=== PATIENT | male | born 1980 | race Hispanic/Latino ===

== ENCOUNTER 2018-01-20 22:34 | Emergency (ER) | payer OTHER ==
[2018-01-20] MEDS ORDERED: SODIUM CHLORIDE 0.9% 1000ML 1,000 ML IV ONE (23:07)
[2018-01-20] MEDS ORDERED: MORPHINE SULFATE 4 MG/1ML SYG ONE (23:07)
[2018-01-20] MEDS ORDERED: ONDANSETRON HCL 4 MG/2 ML VIAL ONE (23:07)
[2018-01-20 23:21] LABS: BASOPHILS % (AUTO) 0.6 % (0.0-5.0); HEMATOCRIT 46.9 % (42-54); MEAN CORPUSCULAR HEMOGLOBIN 30.5 pg (27.0-33.0); MEAN CORPUSCULAR HGB CONC 34.3 g/dL (32.0-36.0); MEAN CORPUSCULAR VOLUME 88.7 fL (79-99); MONOCYTES % (AUTO) 6.3 % (3.0-13.0); NEUTROPHILS % (AUTO) 66.1 % (40.0-77.0); NUCLEATED RED BLOOD CELLS 0.1 % (0.0-0.19); PLATELET COUNT (AUTO) 291 K/uL (130-400); RED BLOOD CELL COUNT(AUTO) 5.29 MIL/uL (4.50-6.20); RED CELL DISTRIBUTION WIDTH 12.9 % (11.0-15.5); WHITE BLOOD COUNT (AUTO) 9.7 K/uL (4.8-10.8)
[2018-01-20 23:24] LABS: CREATININE 1.1 mg/dL (0.5-1.5); POTASSIUM 3.4 mmol/L (3.5-5.1)
[2018-01-20 23:28] LABS: ALBUMIN 3.5 g/dL (3.5-5.0); BILIRUBIN,TOTAL 1.2 mg/dL (0.2-1.0); TOTAL PROTEIN, SERUM 6.7 g/dL (6.0-8.3)
[2018-01-20] MEDS ORDERED: FAMOTIDINE/PF 20 MG/2 ML VIAL IV ONE (23:44)
[2018-01-20] MEDS ORDERED: LIDOCAINE HCL 2% VISCOUS 15 ML UDCUP ONE (23:45)
[2018-01-20] MEDS ORDERED: MAGNESIUM HYDROXIDE 30 ML/UDCUP ONE (23:45)
== END 2018-01-21 01:02 | disposition home or self-care (01) ==
LOC: EDH 22:34
DX: K29.70 Gastritis, unspecified, without bleeding (principal); F43.10 Post-traumatic stress disorder, unspecified; F41.9 Anxiety disorder, unspecified
CPT/HCPCS: 36415; 76705; 80053; 83690; 84484; 85025; 93005; 96361; 96374; 96375; 99285; J2270; J2405; J3490; J7030

== ENCOUNTER 2019-01-24 22:49 | Emergency (ER) | payer OTHER ==
[2019-01-24 23:17] LABS: APPEARANCE,URINE Clear (CLEAR); BILIRUBIN,URINE Negative (NEGATIVE); COLOR,URINE Yellow (YELLOW); GLUCOSE, URINE (UA) Negative (NEGATIVE); KETONES,URINE Negative (NEGATIVE); LEUKOCYTE ESTERASE ,URINE Negative (NEGATIVE); NITRATE,URINE Negative (NEGATIVE); OCCULT BLOOD,URINE Negative (NEGATIVE); PROTEIN,URINE Negative (NEGATIVE)
[2019-01-24 23:58] LABS: BASOPHILS % (AUTO) 0.6 % (0.0-5.0); EOSINOPHILS % (AUTO) 2.9 % (0.0-8.0); HEMATOCRIT 46.3 % (42-54); LYMPHOCYTES % (AUTO) 33.4 % (21.0-51.0); MEAN CORPUSCULAR HEMOGLOBIN 30.9 pg (27.0-33.0); MEAN CORPUSCULAR HGB CONC 34.5 g/dL (32.0-36.0); MEAN CORPUSCULAR VOLUME 89.3 fL (79-99); MONOCYTES % (AUTO) 7.8 % (3.0-13.0); NEUTROPHILS % (AUTO) 55.3 % (40.0-77.0); PLATELET COUNT (AUTO) 298 K/uL (130-400); RED BLOOD CELL COUNT(AUTO) 5.18 MIL/uL (4.50-6.20); RED CELL DISTRIBUTION WIDTH 13.1 % (11.0-15.5); WHITE BLOOD COUNT (AUTO) 8.7 K/uL (4.8-10.8)
[2019-01-25 00:06] LABS: CREATININE 0.8 mg/dL (0.5-1.5); POTASSIUM 3.9 mmol/L (3.5-5.1)
== END 2019-01-25 00:36 | disposition home or self-care (01) ==
LOC: EDH 22:49
DX: R10.32 Left lower quadrant pain (principal)
CPT/HCPCS: 36415; 74176; 80048; 81003; 85025

== ENCOUNTER → 2020-08-14 | Emergency (ER) | payer OTHER ==
[~2020-08-14] VITALS: Ht 160 cm; Wt 99.8 kg
[~2020-08-14] MED LIST: ASPIRIN 325 MG TABLET PO SCH; ESOM40CA54 PO; HYDR-3421 PO
[2020-08-14 17:39] VITALS: BP 133/73
[2020-08-14 17:51] LABS: BASOPHILS % (AUTO) 0.5 % (0.0-5.0); EOSINOPHILS % (AUTO) 2.3 % (0.0-8.0); HEMATOCRIT 42.5 % (42-54); MEAN CORPUSCULAR HEMOGLOBIN 30.8 pg (27.0-33.0); MEAN CORPUSCULAR HGB CONC 34.6 g/dL (32.0-36.0); MEAN CORPUSCULAR VOLUME 88.9 fL (79-99); MONOCYTES % (AUTO) 8.8 % (3.0-13.0); PLATELET COUNT (AUTO) 253 K/uL (130-400); RED BLOOD CELL COUNT(AUTO) 4.78 MIL/uL (4.50-6.20); RED CELL DISTRIBUTION WIDTH 12.2 % (11.0-15.5); WHITE BLOOD COUNT (AUTO) 9.3 K/uL (4.8-10.8)
[2020-08-14 18:01] LABS: CARBON DIOXIDE 29 mmol/L (21-32); CHLORIDE 104 mmol/L (101-111); CREATININE 0.9 mg/dL (0.5-1.5); GLOMERULAR FILTR. RATE CALC 100 mL/min (>60); GLUCOSE,RANDOM 111 mg/dL (70-105); POTASSIUM 3.7 mmol/L (3.5-5.1); SODIUM SERUM 144 mmol/L (136-145); UREA NITROGEN, BLOOD 12 mg/dL (7-18)
[2020-08-14 18:20] LABS: ALANINE AMINOTRANSFERASE 33 U/L (12-78); ALBUMIN 3.8 g/dL (3.5-5.0); BILIRUBIN,TOTAL 0.8 mg/dL (0.2-1.0); CREATINE KINASE, TOTAL 84 U/L (21-232); MYOGLOBIN 31 ng/mL (10-92); TOTAL PROTEIN, SERUM 7.9 g/dL (6.0-8.3); TROPONIN I < 0.04 ng/mL (0.00-0.06)
[2020-08-14 18:39] LABS: ASPARTATE AMINOTRANSFERASE 11 U/L (10-37)
== END | disposition home or self-care (01) ==
LOC: EDH 17:19
DX: F41.9 Anxiety disorder, unspecified (principal); R07.89 Other chest pain
CPT/HCPCS: 36415; 71045; 80053; 82550; 83874; 84484; 85025; 93005

== ENCOUNTER 2020-12-21 01:49 | Emergency (ER) | payer OTHER ==
[~2020-12-21] VITALS: Ht 160 cm; Wt 93.0 kg
[~2020-12-21 01:49] MED LIST changes: -ASPIRIN 325 MG TABLET PO SCH
[2020-12-21] MEDS ORDERED: LIDOCAINE HCL 2% JELLY 5 ML TP ONE (02:30)
[2020-12-21] MEDS ORDERED: HYDR25SU38 RC (02:37)
[2020-12-21] MEDS ORDERED: HYDR30CR79 RC (02:37)
[2020-12-21] MEDS ORDERED: KETOROLAC 60 MG VIAL (30MG/ML) ONE (02:48)
[2020-12-21] MEDS ORDERED: PREDNISONE 20 MG TABLET ONE (02:48)
[2020-12-21] MEDS ORDERED: LIDOCAINE HCL 2% JELLY 5 ML ONE (02:48)
[2020-12-21 02:50] VITALS: BP 117/65
[2020-12-21] MEDS ORDERED: KETOROLAC 60 MG VIAL (30MG/ML) IM ONE (03:00)
[2020-12-21] MEDS ORDERED: PREDNISONE 20 MG TABLET PO ONE (03:00)
== END 2020-12-21 03:18 | disposition home or self-care (01) ==
LOC: EDH 01:49
DX: K64.9 Unspecified hemorrhoids (principal); F41.9 Anxiety disorder, unspecified; Z79.1 Long term (current) use of non-steroidal anti-inflammatories (NSAID); Z79.52 Long term (current) use of systemic steroids
CPT/HCPCS: 96372; 99283; J1885

== ENCOUNTER 2021-12-09 15:33 | Emergency (ER) | payer OTHER ==
[~2021-12-09] VITALS: Ht 162.6 cm; Wt 99.8 kg
[~2021-12-09 15:33] MED LIST changes: +HYDR25SU38 RC; +HYDR30CR79 RC
[2021-12-09] MEDS ORDERED: LIDOCAINE HCL 2% VISCOUS 15 ML UDCUP ONE (15:43)
[2021-12-09] MEDS ORDERED: DICYCLOMINE HCL 10 MG/5 ML ML PO ONE ×2 (15:44→16:00)
[2021-12-09] MEDS ORDERED: MAG/ALUM/SIMETH 30 ML UDCUP ONE (15:44)
[2021-12-09] MEDS ORDERED: PANTOPRAZOLE 40 MG/VIAL IVP STA (15:56)
[2021-12-09] MEDS ORDERED: LIDOCAINE HCL 2% VISCOUS 15 ML UDCUP PO ONE (16:00)
[2021-12-09] MEDS ORDERED: MAG/ALUM/SIMETH 30 ML UDCUP PO ONE (16:00)
[2021-12-09 16:25] LABS: BASOPHILS % (AUTO) 0.3 % (0.0-5.0); EOSINOPHILS % (AUTO) 6.7 % (0.0-8.0); HEMATOCRIT 43.3 % (42-54); LYMPHOCYTES % (AUTO) 18.9 % (21.0-51.0); MEAN CORPUSCULAR HEMOGLOBIN 30.4 pg (27.0-33.0); MEAN CORPUSCULAR HGB CONC 35.1 g/dL (32.0-36.0); MEAN CORPUSCULAR VOLUME 86.6 fL (79-99); MONOCYTES % (AUTO) 6.2 % (3.0-13.0); PLATELET COUNT (AUTO) 345 K/uL (130-400); RED CELL DISTRIBUTION WIDTH 12.4 % (11.0-15.5); WHITE BLOOD COUNT (AUTO) 13.6 K/uL (4.8-10.8)
[2021-12-09 16:33] LABS: POTASSIUM 3.6 mmol/L (3.5-5.1)
[2021-12-09 16:37] LABS: ALBUMIN 4.5 g/dL (3.5-5.0); TOTAL PROTEIN, SERUM 8.9 g/dL (6.0-8.3)
[2021-12-09] MEDS ORDERED: PANT40TA55 PO (17:19)
[2021-12-09 17:20] VITALS: BP 146/71
== END 2021-12-09 17:32 | disposition home or self-care (01) ==
LOC: EDH 15:33
DX: K29.70 Gastritis, unspecified, without bleeding (principal); K52.9 Noninfective gastroenteritis and colitis, unspecified; Z98.890 Other specified postprocedural states; Z79.899 Other long term (current) drug therapy
CPT/HCPCS: 99284; 96374; 84484; 80053; 83690; 85025; 36415; 93005; C9113

== ENCOUNTER 2022-01-13 10:30 | Emergency (ER) | payer OTHER ==
[~2022-01-13] VITALS: Ht 162.6 cm; Wt 99.8 kg
[~2022-01-13 10:30] MED LIST changes: +PANT40TA55 PO
[2022-01-13 10:34] VITALS: BP 121/66
[2022-01-13] MEDS ORDERED: NAPR500T6 PO (12:15)
[2022-01-13] MEDS ORDERED: KETOROLAC 60 MG VIAL (30MG/ML) IM ONE (12:30)
[2022-01-13 12:47] LABS: APPEARANCE,URINE CLEAR (CLEAR); BILIRUBIN,URINE NEGATIVE (NEGATIVE); COLOR,URINE LIGHT-YELLOW (YELLOW); GLUCOSE, URINE (UA) NEGATIVE (NEGATIVE); KETONES,URINE NEGATIVE (NEGATIVE); LEUKOCYTE ESTERASE ,URINE NEGATIVE Leu/uL (NEGATIVE); NITRATE,URINE NEGATIVE (NEGATIVE); OCCULT BLOOD,URINE NEGATIVE (NEGATIVE); PROTEIN,URINE NEGATIVE (NEGATIVE); UROBILINOGEN,URINE 0.2 mg/dL (0.2-1.0)
== END 2022-01-13 12:36 | disposition home or self-care (01) ==
LOC: EDH 10:30
DX: L92.8 Other granulomatous disorders of the skin and subcutaneous tissue (principal); Z79.899 Other long term (current) drug therapy; Z98.890 Other specified postprocedural states
CPT/HCPCS: 99284; 81003; 76870; 96372; J1885

== ENCOUNTER 2022-11-19 17:03 | Emergency (ER) | payer OTHER ==
[~2022-11-19] VITALS: Ht 162.6 cm; Wt 145.1 kg
[~2022-11-19 17:03] MED LIST changes: +NAPR500T6 PO
[2022-11-19 17:54] LABS: BASOPHILS # (AUTO) 0.03 K/uL (0.00-0.20); BASOPHILS % (AUTO) 0.2 % (0.0-5.0); HEMATOCRIT 42.9 % (42-54); IMMATURE GRANULOCYTE ABSOLUTE 0.11 K/uL (0-1); LYMPHOCYTES # (AUTO) 2.8 K/uL (1.0-4.8); LYMPHOCYTES % (AUTO) 16.3 % (21.0-51.0); MEAN CORPUSCULAR HEMOGLOBIN 30.5 pg (27.0-33.0); MEAN CORPUSCULAR HGB CONC 34.5 g/dL (32.0-36.0); MEAN CORPUSCULAR VOLUME 88.5 fL (79-99); MONOCYTES % (AUTO) 5.9 % (3.0-13.0); NEUTROPHILS # (AUTO) 13.4 K/uL (1.8-7.7); PLATELET COUNT (AUTO) 315 K/uL (130-400); RED BLOOD CELL COUNT(AUTO) 4.85 MIL/uL (4.50-6.20); RED CELL DISTRIBUTION WIDTH 12.4 % (11.0-15.5); WHITE BLOOD COUNT (AUTO) 17.4 K/uL (4.8-10.8)
[2022-11-19] MEDS ORDERED: PANTOPRAZOLE 40 MG/VIAL IVP ONE (18:00)
[2022-11-19] MEDS ORDERED: MAG/ALUM/SIMETH 30 ML UDCUP PO ONE (18:00)
[2022-11-19] MEDS ORDERED: LACTATED RINGERS 1000ML 1,000 ML IV ONE (18:00)
[2022-11-19] MEDS ORDERED: ONDANSETRON 4MG INJ IVP ONE (18:00)
[2022-11-19] MEDS ORDERED: LIDOCAINE HCL 2% VISCOUS 15 ML UDCUP PO ONE (18:00)
[2022-11-19 18:21] LABS: POTASSIUM 3.6 mmol/L (3.5-5.1)
[2022-11-19 18:36] LABS: ALBUMIN 4.5 g/dL (3.5-5.0); BILIRUBIN,TOTAL 0.9 mg/dL (0.2-1.0); TOTAL PROTEIN, SERUM 8.6 g/dL (6.0-8.3)
[2022-11-19] MEDS ORDERED: IOHEXOL-350 75 ML VIAL IV ONE (19:12)
[2022-11-19 20:48] LABS: AMPHET/METH SCREEN,URINE NEGATIVE (NEGATIVE); BARBITURATE SCREEN, URINE NEGATIVE (NEGATIVE); BENZODIAZEPINES SCREEN,URINE NEGATIVE (NEGATIVE); CANNABINOID SCREEN,URINE NEGATIVE (NEGATIVE); COCAINE SCREEN,URINE NEGATIVE (NEGATIVE); OPIATE SCREEN,URINE NEGATIVE (NEGATIVE); PHENCYCLIDINE SCREEN,URINE NEGATIVE (NEGATIVE)
[2022-11-19 21:01] LABS: APPEARANCE,URINE CLEAR (CLEAR); BILIRUBIN,URINE NEGATIVE (NEGATIVE); COLOR,URINE LIGHT-YELLOW (YELLOW); GLUCOSE, URINE (UA) NEGATIVE (NEGATIVE); KETONES,URINE NEGATIVE (NEGATIVE); LEUKOCYTE ESTERASE ,URINE NEGATIVE Leu/uL (NEGATIVE); NITRATE,URINE NEGATIVE (NEGATIVE); OCCULT BLOOD,URINE NEGATIVE (NEGATIVE); PH,URINE 6.5 (5.0-8.0); PROTEIN,URINE NEGATIVE (NEGATIVE); UROBILINOGEN,URINE 0.2 mg/dL (0.2-1.0)
[2022-11-19 21:03] LABS: ADD UA MICROSCOPIC YES
[2022-11-19 21:10] LABS: BACTERIA,URINE Rare /HPF (None Seen); RBC,URINE 0-1 /HPF (0-1); WBC,URINE 0-1 /HPF (0-1)
[2022-11-19 21:11] LABS: SQUAMOUS EPITHELIAL CELL,UR Rare /HPF (0-2)
[2022-11-19] MEDS ORDERED: ALBUHFA IH (22:08)
[2022-11-19 22:21] VITALS: BP 148/72; PULSE 56; RESP 16; O2SAT 98
== END 2022-11-19 22:21 | disposition home or self-care (01) ==
LOC: EDH 17:03
DX: K29.70 Gastritis, unspecified, without bleeding (principal); J20.8 Acute bronchitis due to other specified organisms; Z98.890 Other specified postprocedural states
CPT/HCPCS: 99285; 74177; 96374; 96361; 96375; 82550; 84484; 80053; 80305; 83690; 85025; 81001; 36415; J7120; J2405; C9113; Q9967

== ENCOUNTER 2023-02-25 08:12 | Emergency (ER) | payer OTHER ==
[~2023-02-25] VITALS: Ht 162.6 cm; Wt 99.8 kg
[~2023-02-25 08:12] MED LIST changes: +ALBUHFA IH
[2023-02-25 08:48] LABS: HEMATOCRIT 42.1 % (42-54); MEAN CORPUSCULAR HEMOGLOBIN 31.2 pg (27.0-33.0); MEAN CORPUSCULAR HGB CONC 34.2 g/dL (32.0-36.0); MEAN CORPUSCULAR VOLUME 91.1 fL (79-99); RED BLOOD CELL COUNT(AUTO) 4.62 MIL/uL (4.50-6.20); RED CELL DISTRIBUTION WIDTH 12.4 % (11.0-15.5); WHITE BLOOD COUNT (AUTO) 7.5 K/uL (4.8-10.8)
[2023-02-25 09:00] LABS: APPEARANCE,URINE CLEAR (CLEAR); BILIRUBIN,URINE NEGATIVE (NEGATIVE); COLOR,URINE LIGHT-YELLOW (YELLOW); GLUCOSE, URINE (UA) NEGATIVE (NEGATIVE); KETONES,URINE NEGATIVE (NEGATIVE); LEUKOCYTE ESTERASE ,URINE NEGATIVE Leu/uL (NEGATIVE); NITRATE,URINE NEGATIVE (NEGATIVE); OCCULT BLOOD,URINE NEGATIVE (NEGATIVE); PH,URINE 5.5 (5.0-8.0); PROTEIN,URINE NEGATIVE (NEGATIVE); UROBILINOGEN,URINE 0.2 mg/dL (0.2-1.0)
[2023-02-25 09:14] LABS: ADD UA MICROSCOPIC NO
[2023-02-25 09:18] LABS: ALBUMIN 3.7 g/dL (3.5-5.0); BILIRUBIN,TOTAL 0.6 mg/dL (0.2-1.0); CREATININE 0.9 mg/dL (0.5-1.5); POTASSIUM 4.2 mmol/L (3.5-5.1); TOTAL PROTEIN, SERUM 7.2 g/dL (6.0-8.3)
[2023-02-25] MEDS ORDERED: MECLIZINE HCL 25 MG TABLET PO ONE (10:00)
[2023-02-25] MEDS ORDERED: DEXAMETHASONE SOD PHOSPHATE 4 MG/ML 1ML VIAL IM ONE (10:00)
[2023-02-25] MEDS ORDERED: MECL-302 PO (10:56)
[2023-02-25 11:13] VITALS: BP 115/68; PULSE 65; RESP 17; O2SAT 96
== END 2023-02-25 11:16 | disposition home or self-care (01) ==
LOC: EDH 08:12
DX: H81.10 Benign paroxysmal vertigo, unspecified ear (principal); Z79.899 Other long term (current) drug therapy
CPT/HCPCS: 99284; 80053; 85027; 81003; 36415; 96372; 93005; J1100

== ENCOUNTER 2023-06-16 09:27 | Emergency (ER) | payer OTHER ==
[~2023-06-16] VITALS: Ht 162.6 cm; Wt 99.8 kg
[~2023-06-16 09:27] MED LIST changes: +MECL-160 PO
[2023-06-16 09:28] VITALS: BP 157/78; PULSE 45; RESP 18
[2023-06-16] MEDS: LIDOCAINE HCL 2% VISCOUS 15 ML UDCUP PO ONE (10:21)
[2023-06-16] MEDS: MAG/ALUM/SIMETH 30 ML UDCUP PO ONE (10:21)
[2023-06-16 10:29] LABS: BASOPHILS # (AUTO) 0.04 K/uL (0.00-0.20); BASOPHILS % (AUTO) 0.3 % (0.0-5.0); EOSINOPHILS # (AUTO) 0.04 K/uL (0.00-0.70); EOSINOPHILS % (AUTO) 0.3 % (0.0-8.0); HEMATOCRIT 41.9 % (42-54); LYMPHOCYTES # (AUTO) 2.6 K/uL (1.0-4.8); LYMPHOCYTES % (AUTO) 19.9 % (21.0-51.0); MEAN CORPUSCULAR HEMOGLOBIN 31.2 pg (27.0-33.0); MEAN CORPUSCULAR HGB CONC 35.3 g/dL (32.0-36.0); MEAN CORPUSCULAR VOLUME 88.2 fL (79-99); MONOCYTES % (AUTO) 7.6 % (3.0-13.0); NEUTROPHILS # (AUTO) 9.3 K/uL (1.8-7.7); NEUTROPHILS % (AUTO) 71.1 % (40.0-77.0); PLATELET COUNT (AUTO) 298 K/uL (130-400); RED BLOOD CELL COUNT(AUTO) 4.75 MIL/uL (4.50-6.20); RED CELL DISTRIBUTION WIDTH 11.9 % (11.0-15.5); WHITE BLOOD COUNT (AUTO) 13.1 K/uL (4.8-10.8)
[2023-06-16 11:00] LABS: ALBUMIN 4.2 g/dL (3.5-5.0); BILIRUBIN,TOTAL 0.5 mg/dL (0.2-1.0); CREATININE 0.9 mg/dL (0.5-1.3); POTASSIUM 3.8 mmol/L (3.5-5.1); TOTAL PROTEIN, SERUM 8.2 g/dL (6.0-8.3)
[2023-06-16 11:07] LABS: APPEARANCE,URINE CLEAR (CLEAR); BILIRUBIN,URINE NEGATIVE (NEGATIVE); COLOR,URINE YELLOW (YELLOW); GLUCOSE, URINE (UA) NEGATIVE (NEGATIVE); KETONES,URINE NEGATIVE (NEGATIVE); LEUKOCYTE ESTERASE ,URINE NEGATIVE Leu/uL (NEGATIVE); NITRATE,URINE NEGATIVE (NEGATIVE); OCCULT BLOOD,URINE NEGATIVE (NEGATIVE); PH,URINE 5.5 (5.0-8.0); PROTEIN,URINE 30 mg/dL (NEGATIVE); UROBILINOGEN,URINE 0.2 mg/dL (0.2-1.0)
[2023-06-16 11:10] LABS: ADD UA MICROSCOPIC YES
[2023-06-16 11:16] LABS: BACTERIA,URINE RARE /HPF (None Seen); MUCUS,URINE RARE LPF (None Seen); RBC,URINE 0-1 /HPF (0-1); WBC,URINE 0-1 /HPF (0-1)
[2023-06-16] MEDS ORDERED: FAMO20TA8 PO (11:18)
[2023-06-16] MEDS ORDERED: ONDA4TAB10 PO (11:18)
== END 2023-06-16 11:23 | disposition home or self-care (01) ==
LOC: EDH 09:27
DX: K80.20 Calculus of gallbladder without cholecystitis without obstruction (principal); K29.70 Gastritis, unspecified, without bleeding; Z79.899 Other long term (current) drug therapy
CPT/HCPCS: 36415; 71045; 76705; 80053; 81001; 83690; 85025; 93005

== ENCOUNTER 2024-12-08 16:34 | Emergency (ER) | payer OTHER ==
[~2024-12-08] VITALS: Ht 162.6 cm; Wt 99.8 kg
[~2024-12-08 16:34] MED LIST changes: -ESOM40CA54 PO; +ESOM40CA66 PO; +FAMO20TA8 PO; -MECL-160 PO; +MECL-302 PO; +NAPR-1506 PO; -NAPR500T6 PO; +ONDA-243 PO
[2024-12-08 16:38] VITALS: BP 125/57; PULSE 82; RESP 18; TEMP 98.7
--- NOTE | 2024-12-08 16:51 | ERN ---
ED Note History of Present Illness Stated Complaint: TESTICLE PAIN Chief Complaint: Other Problems Time Seen by MD: 16:39 Dictation: PATIENT IS A 44-YEAR-OLD MALE COMING IN TODAY WITH COMPLAINTS OF AN ACUTE ONSET OF LEFT TESTICULAR PAIN WHILE HE WAS WALKING APPROXIMATELY 15:30 HOURS TODAY. HE STATES HE HAS HAD NO NAUSEA VOMITING NO FEVER NO CHILLS. THERE HAS BEEN NO TRAUMA. STATES THERE HAS BEEN NO CHANGE IN URINATION. Allergies: Coded Allergies: No Known Allergies (Unverified Allergy, Unknown, 01/25/19) Home Meds Active Scripts Famotidine (Famotidine) 20 Mg Tablet, 20 MG PO BID, #30 TAB Prov:MIROSLAVA MAKI V GRAPHIC ART DESIGNER 06/16/23 Ondansetron (Ondansetron Odt) 4 Mg Tab.rapdis, 4 MG PO Q6HPRN PRN for NAUSEA for 3 Days, #9 TAB Prov:MIROSLAVA MAKI V GRAPHIC ART DESIGNER 06/16/23 Meclizine HCl (Meclizine HCl) 25 Mg Tablet, 25 MG PO TID PRN for DIZZINESS, #30 TAB 0 Refills Prov:VETO MUKHERJEE MD 02/25/23 Albuterol Sulfate (Ventolin Hfa/Proventil Hfa/Proair Hfa) 90 Mcg/Puff Puff, 2 PUFF IH Q4H for WHEEZING, #1 INHALER 2 Refills Prov:ANDREY ALEMAN Sr., MD 11/19/22 Naproxen (Naproxen) 500 Mg Tablet.dr, 500 MG PO BIDPC for PAIN for 30 Days, #30 TAB Prov:JOSE DE LA VEGA MD 01/13/22 Pantoprazole Sodium (Protonix) 40 Mg Ectab, 40 MG PO DAILY for 30 Days, #30 TA B.EC Prov:MANDY BARAJAS MD 12/09/21 Hydrocortisone (Anusol-Hc) 30 Gm Cream..g., 30 GM RC TIDP, #30 GM 0 Refills Prov:GEORGIE DALE MD 12/21/20 Hydrocortisone Acetate (Anusol-Hc) 25 Mg Supp.rect, 25 MG RC BID, #20 EA 0 Refills Prov:GEORGIE DALE MD 12/21/20 Esomeprazole Magnesium (Esomeprazole Magnesium) 40 Mg Capsule.dr, 40 MG PO DAILY, #30 CAP Prov:JOEL WASHINGTON MD 08/14/20 Hydroxyzine HCl (Hydroxyzine HCl) 25 Mg Tablet, 25 MG PO BID PRN for ANXIETY, #30 TAB Prov:JOEL WASHINGTON MD 08/14/20 Past Medical History Past Medical History: No Pertinent History, Gallstones, Other Additional Past Medical Hx: GASTRITIS, CHRONIC NECK PAIN, BACK PAIN Surgical History: Other Surgical History Other: BACK SX, NECK, VASECTOMY Social History: Lives with family RN Note Reviewed/Agreed w/PFSH: Yes Review of System Dictation CONSTITUTIONAL: NEGATIVE EXCEPT FOR HPI HEAD/FACE: NEGATIVE EXCEPT FOR HPI EENT: NEGATIVE EXCEPT FOR HPI RESPIRATORY: NEGATIVE EXCEPT FOR HPI GASTROINTESTINAL/ABDOMINAL: NEGATIVE EXCEPT FOR HPI GENITOURINARY: NEGATIVE EXCEPT FOR HPI LEFT TESTICULAR PAIN MUSCULOSKELETAL: NEGATIVE EXCEPT FOR HPI INTEGUMENTARY: NEGATIVE EXCEPT FOR HPI NEUROLOGICAL/PSYCH: NEGATIVE EXCEPT FOR HPI HEMATOLOGIC/LYMPHATIC: NEGATIVE EXCEPT FOR HPI ALL SYSTEMS NEGATIVE, EXCEPT NOTED ABOVE. 13 POINT REVIEW OF SYSTEMS ASSESSED AND ALL NEGATIVE EXCEPT FOR ABOVE. Initial Vital Sign VS Vital Signs Date Time Temp Pulse Resp B/P (MAP) Pulse Ox O2 Delivery O2 Flow Rate FiO2 12/08/24 16:38 98.8 82 18 125/57 97 Physical Exam Dictation VITAL SIGNS REVIEWED KERI RN IN ROOM WITH THE EXAM IN TRIAGE GENERAL APPEARANCE: ALERT, ORIENTED X 3, MODERATE ACUTE DISTRESS, WELL DEVELOPED, NOURISHED. OBESE HEAD AND FACE: NON-TRAUMATIC. EYES: PERRL, PINK CONJUNCTIVAS, EYELID NO TRAUMA, ANTERIOR CHAMBER WITH ARCUS SENILIS. EARS: PINNAS INTACT AND NO SIGNS OF TRAUMA OR ERYTHEMA EAR CANALS CLEAR AND NO DISCHARGE TM NO ERYTHEMA NOSE: NO DISCHARGE, NO BLEEDING. OROPHARYNX: MOUTH NORMAL, TONGUE PINK, PHARYNX CLEAR,NO ERYTHEMA, TONSILS NO EXUDATES, NO ABSCESSES NOTED, MUCOUS MEMBRANE MOIST NECK: SUPPLE, NON-TENDER, NO THYROMEGALY, NO MASSES, NO JVD, NO BRUITS BREAST:DEFERRED CHEST:NO TENDERNESS, NO CREPITUS, NO PARADOXICAL MOVEMENT, NO RETRACTIONS LUNGS:CLEAR, WELL-VENTILATED, SYMMETRIC, NO RALES, NO WHEEZING, NO RHONCHI, NO STRIDOR, GOOD BREATH SOUNDS BILATERALLY HEART: REGULAR RATE, REGULAR RHYTHM, NO MURMUR, NO GALLOPS VASCULAR: NO PERIPHERAL EDEMA, ABDOMEN: SOFT, POSITIVE BOWEL SOUNDS, NONDISTENDED, NO GUARDING, NONTENDER, NO REBOUND, NO MASSES NO HEPATOMEGALY, NO SPLENOMEGALY, NO MCFARLANE'S SIGN, NO HERNIAS. RECTAL: DEFERRED GENITAL: PATIENT IS HOODED, BILATERAL TESTICLES ARE DESCENDED. PATIENT HAS TESTICULAR PAIN WITH PALPATION TO THE LEFT TESTICLE. THERE WAS NO SWELLING NO SKIN CHANGES TO SCROTUM OR PERINEUM. POSITIVE CREMASTERIC REFLEX BILATERALLY NEUROLOGICAL: NORMAL SPEECH, MOTOR FUNCTION INTACT, SENSORY FUNCTION INTACT MUSCULOSKELETAL: NECK NONTENDER, FULL RANGE OF MOTION, BACK NONTENDER, FULL RANGE OF MOTION, EXTREMITIES: NONTENDER, FULL RANGE OF MOTION SKIN: COLOR PINK, DRY, NO TURGOR, NO RASH, NO LACERATIONS, NO ABRASIONS, NO CONTUSIONS. LYMPHATIC: DEFERRED Results (Laboratory/Radiology) Laboratory/Radiology Laboratory Tests Test 12/08/24 16:55 12/08/24 17:55 White Blood Count 8.6 K/uL (4.8-10.8) Red Blood Count 4.66 MIL/uL (4.50-6.20) Hemoglobin 14.4 g/dL (14.0-18.0) Hematocrit 41.0 % (42-54) L Mean Corpuscular Volume 88.0 fL (79-99) Mean Corpuscular Hemoglobin 30.9 pg (27.0-33.0) Mean Corpuscular Hemoglobin Concent 35.1 g/dL (32.0-36.0) Red Cell Distribution Width 12.2 % (11.0-15.5) Platelet Count 293 K/uL (130-400) Mean Platelet Volume 10.2 fL (7.5-10.5) Immature Granulocyte % (Auto) 0.6 % (0-1) Neutrophils (%) (Auto) 58.9 % (40.0-77.0) Lymphocytes (%) (Auto) 30.8 % (21.0-51.0) Monocytes (%) (Auto) 7.2 % (3.0-13.0) Eosinophils (%) (Auto) 1.9 % (0.0-8.0) Basophils (%) (Auto) 0.6 % (0.0-5.0) Neutrophils # (Auto) 5.1 K/uL (1.8-7.7) Lymphocytes # (Auto) 2.7 K/uL (1.0-4.8) Monocytes # (Auto) 0.6 K/uL (0.1-1.0) Eosinophils # (Auto) 0.16 K/uL (0.00-0.70) Basophils # (Auto) 0.05 K/uL (0.00-0.20) Absolute Immature Granulocyte (auto 0.05 K/uL (0-1) Nucleated Red Blood Cells 0.0 % (0.0-0.19) Sodium Level 137 mmol/L (136-145) Potassium Level 3.7 mmol/L (3.5-5.1) Chloride Level 100 mmol/L (101-111) L Carbon Dioxide Level 30 mmol/L (21-32) Blood Urea Nitrogen 18 mg/dL (7-18) Creatinine 1.0 mg/dL (0.5-1.3) Glomerular Filtration Rate Calc 96 mL/min (>90) Random Glucose 108 mg/dL (70-105) H Total Calcium 9.4 mg/dL (8.5-10.1) Urine Color LIGHT-YELLOW (YELLOW) Urine Appearance CLEAR (CLEAR) Urine pH 6.0 (5.0-8.0) Urine Specific [place] 1.026 (1.001-1.031) Urine Protein NEGATIVE mg/dL (NEGATIVE) Urine Glucose (UA) NEGATIVE mg/dL (NEGATIVE) Urine Ketones NEGATIVE mg/dL (NEGATIVE) Urine Occult Blood NEGATIVE (NEGATIVE) Urine Nitrate NEGATIVE (NEGATIVE) Urine Bilirubin NEGATIVE mg/dL (NEGATIVE) Urine Urobilinogen 0.2 mg/dL (0.2-1.0) Urine Leukocyte Esterase NEGATIVE Mamie/uL 1735/SCROTAL ULTRASOUND DEMONSTRATES BLOOD FLOW TO BOTH TESTICLES. PATIENT HAS A SMALL RIGHT TESTICULAR CYST NO EPIDIDYMITIS Labs Reviewed?: Yes ED Course ED Course Orders Procedure Category Date Status Time Us Scrotum & Contents US 12/08/24 Resulted 16:48 Cbc With Differential LAB 12/08/24 Complete 16:48 Urinalysis Profile LAB 12/08/24 Complete 16:48 Basic Metabolic Panel LAB 12/08/24 Complete 16:48 Ibuprofen 800 Mg Tab PHA 12/08/24 Complete (Motrin) 17:00 Current Medications Medications (Trade) Dose Ordered Sig/Shalom Route PRN Reason Start Time Stop Time Status Last Admin Dose Admin Ibuprofen (moTRIN) 800 mg ONCE ONCE PO 12/08/24 17:00 12/08/24 17:01 DC Vital Signs Date Time Temp Pulse Resp B/P (MAP) Pulse Ox O2 Delivery O2 Flow Rate FiO2 12/08/24 16:38 98.8 82 18 125/57 97 1830/PATIENT IS AWARE THAT THERE IS NO INFECTION AND THERE WAS NO TORSION. HE IS AWARE OF A CYST TO THE RIGHT TESTICLE HE WILL BE REFERRED TO UROLOGY AND GIVEN IBUPROFEN FOR PAIN. Medical Decision Making MDM MEDICAL DECISION-MAKING BASED ON ULTRASOUND OF SCROTUM WITH BASIC LABS TO INCLUDE URINALYSIS. LABS UNREMARKABLE PATIENT HAS A SMALL RIGHT TESTICULAR CYST NO TORSION NO EPIDIDYMITIS PATIENT WILL BE GIVEN MOTRIN FOR ORCHIALGIA REFERRED TO UROLOGY TESTICULAR DX & DISP Disposition: Discharge Departure Impression: Primary Impression: Testicular cyst Additional Impression: Orchialgia Condition: Stable Scripts Ibuprofen (Ibuprofen 800 mg Tab) 800 Mg Tab 800 MG PO Q8H PRN for fever or pain, #30 TAB 0 Refills Prov: KEYANNA HASSAN ORTHODONTIST VICE PRESIDENT 12/08/24 Additional Instructions: FOLLOW-UP WITH PRIMARY CARE PROVIDER IN 1 TO 2 DAYS. TAKE MEDICATIONS D IRECTED HERE IN THE EMERGENCY ROOM. OKAY TO CONTINUE HOME MEDICATIONS UNLESS OTHERWISE DISCUSSED DURING YOUR VISIT IN THE EMERGENCY ROOM TODAY. RETURN TO YOUR NEAREST EMERGENCY ROOM IF SYMPTOMS WORSEN OR IF THERE IS NO IMPROVEMENT. CALL 911 IF YOU NEED IMMEDIATE ASSISTANCE. TAKE TYLENOL OR MOTRIN [id number] NEEDED AND IF NO CONTRAINDICATIONS ARE PRESENT. INCREASE ORAL HYDRATION. A WOUND CULTURE OR URINE CULTURE WAS ORDERED HERE IN THE EMERGENCY ROOM DEPARTMENT PLEASE FOLLOW-UP WITH PRIMARY CARE PROVIDER AND ADVISE THEM TO GET REPEAT PORTS FROM OUR FACILITY. IF YOU HAD ANY NABOR WRAP/SPLINTS THAT WERE APPLIED HERE, PLEASE DO NOT REMOVE THEM UNTIL YOU SEE YOUR PRIMARY CARE OR SPECIALTY. CALL UROLOGIST FOR AN APPOINTMENT IN THE NEXT 1-2 DAYS FOR THE CYST TO YOUR RIGHT TESTICLE. TAKE IBUPROFEN NEEDED FOR PAIN. Referrals: AUBREY EL (PCP) MCKINLEY GONZALEZ MD Time of Disposition: 18:35 I have reviewed the case, and I agree with, Diagnosis and Plan KEYANNA HASSAN NP Dec 08, 2024 16:51
[2024-12-08 17:05] LABS: IMMATURE GRANULOCYTE ABSOLUTE 0.05 K/uL (0-1); NUCLEATED RED BLOOD CELLS 0.0 % (0.0-0.19); PLATELET COUNT (AUTO) 293 K/uL (130-400); RED BLOOD CELL COUNT(AUTO) 4.66 MIL/uL (4.50-6.20); RED CELL DISTRIBUTION WIDTH 12.2 % (11.0-15.5); WHITE BLOOD COUNT (AUTO) 8.6 K/uL (4.8-10.8)
[2024-12-08 17:16] LABS: CREATININE 1.0 mg/dL (0.5-1.3); GLOMERULAR FILTR. RATE CALC 96.0 mL/min (>90); GLUCOSE,RANDOM 108.0 mg/dL (70-105); SODIUM SERUM 137.0 mmol/L (136-145); UREA NITROGEN, BLOOD 18.0 mg/dL (7-18)
[2024-12-08 18:02] LABS: APPEARANCE,URINE CLEAR (CLEAR); GLUCOSE, URINE (UA) NEGATIVE (NEGATIVE); LEUKOCYTE ESTERASE ,URINE NEGATIVE Leu/uL (NEGATIVE); NITRATE,URINE NEGATIVE (NEGATIVE); OCCULT BLOOD,URINE NEGATIVE (NEGATIVE)
[2024-12-08 18:04] LABS: ADD UA MICROSCOPIC NO
--- NOTE | 2024-12-08 18:25 | HMCIMG ---
Exam: Scrotal Ultrasound Technique: Static culver scale and color doppler images were submitted. History: Left testicular pain Comparison: Ultrasound scrotal 01/13/2022 Findings: The testicles are normal in size, contour, and echotexture. The right testicle measures: 5.4 x 2.3 x 3.2 cm. The left testicle measures: 4.5 x 2.3 x 3.7 cm. There is patent blood flow within the testicles bilaterally. No intra-testicular mass or abnormal echotexture. Bilateral epididymides are normal in appearance. The right epididymis measures: 1.0 x 0.4 x 0.3 cm. Complex right epididymal cyst measuring 0.4 x 0.5 x 0.6 cm The left epididymis measures: 1.1 x 0.4 x 0.9 cm. Mild hyperemia left epididymis Small simple right-sided hydrocele Left-sided varicocele IMPRESSION: 1. Mild increased blood flow left epididymis suspicious for epididymoorchitis 2. Complex right epididymal cyst measuring 0.4 x 0.5 x 0.6 cm. 4. Small simple right-sided hydrocele. 5. Left-sided varicocele. /[place]
[2024-12-08] MEDS ORDERED: IBUP-2077 PO (18:36)
== END 2024-12-08 19:01 | disposition home or self-care (01) ==
LOC: EDH 16:34
DX: N44.2 Benign cyst of testis (principal); Z79.899 Other long term (current) drug therapy; Z87.19 Personal history of other diseases of the digestive system
CPT/HCPCS: 36415; 76870; 80048; 81003; 85025; 99284

== ENCOUNTER → 2024-12-19 | Outpatient (CLI) | payer OTHER ==
[~2024-12-19] MED LIST changes: +IBUP-2077 PO; +IOHEXOL 350 MG/ML 100ML INFUS..BTL IV ONE
--- NOTE | 2024-12-19 14:54 | HMCIMG ---
EXAM: CT Abdomen and Pelvis with and without IV contrast CLINICAL HISTORY: Abnormal findings on diagnostic imaging of other specified body structures TECHNIQUE: Axial computed tomography images of the abdomen and pelvis with and without intravenous contrast. CONTRAST: with and without intravenous contrast. COMPARISON: Study dated 11/19/22. FINDINGS: LUNG BASES: The lung bases appear clear. No pleural effusions are seen. LIVER: The liver is enlarged, and the right lobe of the liver measures 17.2 cm. Diffuse hepatic steatosis. GALLBLADDER AND BILE DUCTS: The gallbladder appears within normal limits. No radioopaque gallstones are seen. No biliary ductal dilatation is evident. PANCREAS: Unremarkable. SPLEEN: The spleen is mildly enlarged, measuring 12.2 cm. ADRENAL GLANDS: Unremarkable. KIDNEYS, URETERS, AND BLADDER: The kidneys appear within normal limits. There is no hydronephrosis or hydroureter. No urinary calculi are seen. STOMACH AND BOWEL: Unremarkable appearance of the stomach and bowel. No evidence of bowel obstruction. No evidence suggesting enteritis or colitis. Normal appendix. PERITONEUM: No free fluid. No free air. LYMPH NODES: No lymphadenopathy is evident. REPRODUCTIVE: Unremarkable as visualized. VASCULATURE: No evidence of abdominal aortic aneurysm. BONES: Pedicle screw fixation at L4, L5 and S1 vertebral levels. No aggressive appearing osseous lesion. No acute osseous pathology evident. IMPRESSION: 1. No acute intraabdominal or pelvic findings. 2. Hepatomegaly with right lobe measuring 17.2 cm and diffuse hepatic steatosis. 3. Mild splenomegaly, measuring 12.2 cm. /[place]
== END | disposition home or self-care (01) ==
LOC: RAH 08:43
PROVIDERS: ATTEND Internal Medicine Gastroenterology
DX: T84.226A Displacement of internal fixation device of vertebrae, initial encounter (principal); K76.0 Fatty (change of) liver, not elsewhere classified; R16.2 Hepatomegaly with splenomegaly, not elsewhere classified; R93.89 Abnormal findings on diagnostic imaging of other specified body structures; M43.27 Fusion of spine, lumbosacral region; X58.XXXA Exposure to other specified factors, initial encounter; Y93.89 Activity, other specified; Y92.89 Other specified places as the place of occurrence of the external cause; Y99.8 Other external cause status
CPT/HCPCS: 74178; Q9967

== ENCOUNTER 2025-01-03 17:22 | Emergency (ER) | payer OTHER ==
[~2025-01-03] VITALS: Ht 162.6 cm; Wt 98.9 kg
[~2025-01-03 17:22] MED LIST changes: -IOHEXOL 350 MG/ML 100ML INFUS..BTL IV ONE
[2025-01-03] MEDS ORDERED: IBUP-1492 PO (18:17)
--- NOTE | 2025-01-03 18:17 | ERN ---
ED Note History of Present Illness Stated Complaint: RT KNEE PAIN Chief Complaint: Knee Injury/Swelling Time Seen by MD: 17:30 Dictation: 44-year-old male presents to ER complaints of right knee pain. Patient states he got kicked to the right knee at work. 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 Allergies: Coded Allergies: No Known Allergies (Unverified Allergy, Unknown, 01/25/19) Home Meds Active Scripts Ibuprofen (Ibuprofen) 600 Mg Tablet, 1 TAB PO TID for pain for 10 Days, #30 TAB 0 Refills with food Prov:PHILIPPCAROLINA AD COMPOSITOR 01/03/25 Ibuprofen (Ibuprofen 800 mg Tab) 800 Mg Tab, 800 MG PO Q8H PRN for fever or pain, #30 TAB 0 Refills Prov:KEYANNA HASSAN AD COMPOSITOR 12/08/24 Famotidine (Famotidine) 20 Mg Tablet, 20 MG PO BID, #30 TAB Prov:MIROSLAVA MAKI V AD COMPOSITOR 06/16/23 Ondansetron (Ondansetron Odt) 4 Mg Tab.rapdis, 4 MG PO Q6HPRN PRN for NAUSEA for 3 Days, #9 TAB Prov:MIROSLAVA MAKI V AD COMPOSITOR 24 Meclizine HCl (Meclizine HCl) 25 Mg Tablet, 25 MG PO TID PRN for DIZZINESS, #30 TAB 0 Refills Prov:VETO MUKHERJEE MD 02/25/23 Albuterol Sulfate (Ventolin Hfa/Proventil Hfa/Proair Hfa) 90 Mcg/Puff Puff, 2 PUFF IH Q4H for WHEEZING, #1 INHALER 2 Refills Prov:ANDREY ALEMAN Sr., MD 11/19/22 Naproxen (Naproxen) 500 Mg Tablet.dr, 500 MG PO BIDPC for PAIN for 30 Days, #30 TAB Prov:JOSE DE LA VEGA MD 01/13/22 Pantoprazole Sodium (Protonix) 40 Mg Ectab, 40 MG PO DAILY for 30 Days, #30 TAB.EC Prov:MANDY BARAJAS MD 12/09/21 Hydrocortisone (Anusol-Hc) 30 Gm Cream..g., 30 GM RC TIDP, #30 GM 0 Refills Prov:GEORGIE DALE MD 12/21/20 Hydrocortisone Acetate (Anusol-Hc) 25 Mg Supp.rect, 25 MG RC BID, #20 EA 0 Refills Prov:GEORGIE DALE MD 12/21/20 Esomeprazole Magnesium (Esomeprazole Magnesium) 40 Mg Capsule.dr, 40 MG PO DAILY, #30 CAP Prov:JOEL WASHINGTON MD 08/14/20 Hydroxyzine HCl (Hydroxyzine HCl) 25 Mg Tablet, 25 MG PO BID PRN for ANXIETY, #30 TAB Prov:JOEL WASHINGTON MD 08/14/20 Past Medical History Past Medical History: Liver Disease Additional Past Medical Hx: GASTRITIS, CHRONIC NECK PAIN, BACK PAIN Surgical History: Other Surgical History Other: LOWER BACK SX, CERVICAL NECK SX Social History: Lives with family Review of System Dictation CONSTITUTIONAL: NEGATIVE FOR FEVER,CHILLS, AND WEIGHT LOSS EYES: NEGATIVE FOR INJURY, PAIN,REDNESS, AND DISCHARGE ENT: NEGATIVE FOR INJURY,PAIN OR SWELLING CARDIOVASCULAR: NEGATIVE FOR CHEST PAIN, PALPITATIONS, AND EDEMA RESPIRATORY: NEGATIVE FOR SHORTNESS OF BREATH, COUGH, WHEEZING, AND PLEURITIC CHEST PAIN ABDOMEN/GI: NEGATIVE FOR ABDOMINAL PAIN, NAUSEA, VOMITING AND DIARRHEA. BACK: NEGATIVE FOR PAIN OR INJURY : NEGATIVE FOR INJURY, BLEEDING AND DISCHARGE MS/EXTREMITY: Positive injury, pain SKIN: NEGATIVE FOR RASH, AND DISCOLORATION NEURO: NEGATIVE FOR HEADACHE, WEAKNESS, NUMBNESS, TINGLING, AND SEIZURE PSYCH: NEGATIVE FOR SUICIDE IDEATION, HOMICIDAL IDEATION, AND HALLUCINATIONS ALLERGY/IMMUNOLOGY: NEGATIVE FOR HIVES, RASH, AND ALLERGIES ALL SYSTEMS NEGATIVE, EXCEPT NOTED ABOVE. 13 POINT REVIEW OF SYSTEMS ASSESSED AND ALL NEGATIVE EXCEPT FOR ABOVE. Initial Vital Sign VS Vital Signs Date Time Temp Pulse Resp B/P (MAP) Pulse Ox O2 Delivery O2 Flow Rate FiO2 01/03/25 17:24 98.1 100 16 132/76 100 Room Air 0 01/03/25 18:34 21 Physical Exam Dictation General: awake, alert, NAD Head/Face: Normocephalic, atraumatic Eyes: PERRL, EOMI, vision at baseline ENT: oral cavity clear, TMs clear, no signs of infection Neck: Trachea midline, supple, no nuchal rigidity Cardiovascular: RRR, normal no JVD Respiratory: CTAB, no respiratory distress, No rales or wheezes Abdomen: Soft, non-tender, non-distended, normal bowel sounds, no guarding or rebound. Skin: Warm, dry, normal turgor, no rash MS/Extremity: Pulses equal, no cyanosis, neurovascular intact, mild pain with range of motion to right knee Neuro: COAx4, GCS 15, strength 5/5, CN 2-12 intact, normal cerebellar exam, normal gait, Psych: Normal behavior, mood, and affect normal ED Course ED Course Orders Procedure Category Date Status Time Knee 3vws Rt RAD 01/03/25 Taken 17:57 Ibuprofen (Motrin) PHA 01/03/25 Complete 18:00 Current Medications Medications (Trade) Dose Ordered Sig/Shalom Route PRN Reason Start Time Stop Time Status Last Admin Dose Admin Ibuprofen (moTRIN) 400 mg ONCE ONCE PO 01/03/25 18:00 01/03/25 18:02 DC Vital Signs Date Time Temp Pulse Resp B/P (MAP) Pulse Ox O2 Delivery O2 Flow Rate FiO2 01/03/25 18:34 98.2 96 19 125/70 96 Room Air* 0 21 01/03/25 17:24 98.1 100 16 132/76 100 Room Air 0 Medical Decision Making MDM MDM: Differential diagnosis: Knee contusion, knee sprain, knee fracture Rationale: Tests considered and ordered secondary to shared decision making include: labs, ECG and radiology Previous outside records reviewed: Old ER visits. Risk of complication and/or morbidity or mortality of patient management: None Medications-Per medication reconciliation Need for hospitalization: Patient does NOT meet criteria for hospitalization. Need for emergency major/minor surgery: No There are no social concerns with this patient. Prescription drug management Prescriptions will include symptomatic care Patient's prior external medical records from other ER visits were reviewed by me as indicated. Prior testing and results from previous visits were reviewed. Prior tests were taken into account with medical decision making and resource utilization, independent historian/historians were used to obtain complete medical history. I independently interpreted the test that were performed, results were reviewed by me and considered findings on radiology if ordered. DX & DISP Disposition: Discharge Departure Impression: Primary Impression: Knee contusion Additional Impression: Knee pain Condition: Stable Assign Patient to: No fractures on today isn't identified. Use support as needed. FOLLOW-UP WITH YOUR PCP IN 24-72 HOURS AND IN THE EVENT IF SYMPTOMS WORSEN OR AN EMERGENCY OVERNIGHT REPORT TO THE ED IMMEDIATELY Scripts Ibuprofen (Ibuprofen) 600 Mg Tablet 1 TAB PO TID for pain for 10 Days, #30 TAB 0 Refills with food Prov: CAROLINA SEGAL 01/03/25 Referrals: AUBREY EL (PCP) CAROLINA SEGAL Jan 03, 2025 18:17
--- NOTE | 2025-01-03 18:34 | NUR ---
THE PATIENT REFUSED IBUPROFEN FOR PAIN STATING THAT THE PAIN IS SMALL AND TOLERABLE WITHOUT IT.
--- NOTE | 2025-01-03 19:27 | HMCIMG ---
EXAM: CR right Knee, 3 View. CLINICAL HISTORY: contusion, pain COMPARISON: None provided. FINDINGS: BONES: No acute fracture or aggressive appearing osseous lesion. JOINTS: The joint spaces show no significant degenerative disease. There is no joint effusion appreciated. SOFT TISSUES: The soft tissues are unremarkable. IMPRESSION: No acute osseous pathology evident. /[place]
[2025-01-03 20:03] VITALS: BP 125/70; PULSE 90; RESP 19; TEMP 98.2; O2SAT 100
== END 2025-01-03 20:11 | disposition home or self-care (01) ==
LOC: EDH 17:22
DX: S80.01XA Contusion of right knee, initial encounter (principal); G89.29 Other chronic pain; Z79.899 Other long term (current) drug therapy; Z79.1 Long term (current) use of non-steroidal anti-inflammatories (NSAID); W51.XXXA Accidental striking against or bumped into by another person, initial encounter; Y93.89 Activity, other specified; Y92.89 Other specified places as the place of occurrence of the external cause; Y99.0 Civilian activity done for income or pay
CPT/HCPCS: 73562; 99283